=== PATIENT | female | born 1965 | race Two or more races ===

== ENCOUNTER 2023-07-05 21:05 | Emergency (ER) | payer MEDICAID, OTHER ==
[~2023-07-05] VITALS: Ht 162.6 cm; Wt 66.0 kg
[2023-07-06] MEDS ORDERED: methylPREDNISolone SOD SUCC 40 MG/ML VL IM ONE (02:00)
[2023-07-06] MEDS ORDERED: KETOROLAC TROMETH 60MG/2ML VIAL IM ONE (02:00)
[2023-07-06] MEDS ORDERED: HYDR-4902 PO (02:09)
[2023-07-06] MEDS ORDERED: CYCL-837 PO (02:09)
[2023-07-06] MEDS ORDERED: IBUP-1455 PO (02:09)
[2023-07-06 02:44] VITALS: BP 124/75; PULSE 78; RESP 18; TEMP 98.4; O2SAT 97
== END 2023-07-06 03:25 | disposition home or self-care (01) ==
LOC: ER 21:14
DX: S22.088A Other fracture of T11-T12 vertebra, initial encounter for closed fracture (principal); Z88.2 Allergy status to sulfonamides; V29.99XA Rider (driver) (passenger) of other motorcycle injured in unspecified traffic accident, initial encounter; Y93.89 Activity, other specified; Y92.89 Other specified places as the place of occurrence of the external cause; Y99.8 Other external cause status
CPT/HCPCS: 72100; 96372; 99284; J1885; J2920

== ENCOUNTER 2023-07-19 09:01 | Inpatient (IN) | payer MEDICAID ==
[~2023-07-19] VITALS: Ht 167.6 cm; Wt 68.8 kg
[~2023-07-19 09:01] MED LIST: CYCL-837 PO; HYDR-4902 PO; IBUP-1455 PO
[2023-07-19 11:43] LABS: Basophils # (auto) 0 10 ^3/uL (0-0.2); Basophils % (auto) 0.5 % (0.0-2.0); Eosinophils # (auto) 0.1 10 ^3/uL (0-0.8); Eosinophils % (auto) 0.9 % (0.0-7.0); Hematocrit 41.4 % (36.0-46.0); Hemoglobin 14.2 g/dL (12.2-16.2); Lymphocytes # (auto) 1.2 10 ^3/uL (0.4-5.4); Lymphocytes % (auto) 14.4 % (10.0-50.0); Mean Corpuscular Hemoglobin 29.4 pg (28.0-32.0); Mean Corpuscular Hgb Conc. 34.3 g/dL (32.0-36.0); Mean Corpuscular Volume 85.7 fL (80.0-100.0); Monocytes # (auto) 0.4 10 ^3/uL (0-1.3); Monocytes % (auto) 4.9 % (0.0-12.0); Neutrophils # (auto) 6.9 10 ^3/uL (1.6-8.6); Neutrophils % (auto) 79.3 % (37.0-80.0); Red Blood Cells 4.83 10^6/uL (4.0-5.20); Red Cell Distribution Width 12.4 % (11.8-14.3); White Blood Cell 8.7 10^3/uL (4.4-10.8)
[2023-07-19 12:06] LABS: Alanine Aminotransferase 24 U/L (7-40); Albumin 4.7 g/dL (3.2-4.8); Alkaline Phosphatase 162 U/L (46-116); Anion Gap 8 (5-15); Aspartate Aminotransferase 9 U/L (13-40); BUN/Creatinine Ratio 15.5 (10.0-20.0); Blood Urea Nitrogen 11 mg/dL (9-23); Calcium 9.7 mg/dL (8.7-10.4); Carbon Dioxide 27 mmol/L (20-30); Chloride 103 mmol/L (98-107); Glucose 91 mg/dL (74-106); Potassium 4.5 mmol/L (3.5-5.1); Sodium 138 mmol/L (136-145)
[2023-07-19 12:07] LABS: Bilirubin, Total 0.5 mg/dL (0.2-1.0)
[2023-07-19] MEDS ORDERED: NITROGLYCERIN 0.4 MG SL TAB SL PRN (15:00)
[2023-07-19] MEDS ORDERED: HYDROcodone-ACET 5/325MG TAB PO PRN (15:00)
[2023-07-19] MEDS ORDERED: MORPHINE SULFATE INJ 2 MG/ml SYRG IV PRN ×2 (15:00)
[2023-07-19] MEDS ORDERED: ACETAMINOPHEN 325 MG TAB PO PRN (15:00)
[2023-07-19 15:29] LABS: INR 0.98 (0.9-1.15); Partial Thromboplastin Time 29.6 SEC (24.5-34.5); Prothrombin Time 10.3 sec (9.3-11.8)
[2023-07-19 17:20] VITALS: PULSE 74; RESP 20; O2SAT 97
[2023-07-19 20:00] VITALS: PULSE 68; RESP 16; O2SAT 96
[2023-07-19 22:00] VITALS: BP 124/85; PULSE 68; RESP 16; TEMP 98.4; O2SAT 96
[2023-07-20 00:47] LABS: Urine Bacteria NONE SEEN /hpf (None Seen); Urine Blood Negative /uL (Negative); Urine Clarity Clear (Clear); Urine Color Colorless (Yellow); Urine Protein, UAD Negative (Negative); Urine Urobilinogen Normal (Negative); Urine WBC <1 /hpf (0 - 5)
[2023-07-20 05:00] VITALS: BP 107/51; PULSE 68; RESP 16; TEMP 98.3; O2SAT 95
[2023-07-20 06:45] LABS: Anion Gap 9 (5-15); Carbon Dioxide 25 mmol/L (20-30); Chloride 103 mmol/L (98-107); Potassium 4.5 mmol/L (3.5-5.1); Sodium 137 mmol/L (136-145)
[2023-07-20 06:46] LABS: Calcium 9.3 mg/dL (8.7-10.4)
[2023-07-20 06:47] LABS: Basophils # (auto) 0 10 ^3/uL (0-0.2); Basophils % (auto) 0.5 % (0.0-2.0); Eosinophils # (auto) 0.2 10 ^3/uL (0-0.8); Eosinophils % (auto) 2.3 % (0.0-7.0); Hematocrit 39.4 % (36.0-46.0); Hemoglobin 13.4 g/dL (12.2-16.2); Lymphocytes # (auto) 1.2 10 ^3/uL (0.4-5.4); Lymphocytes % (auto) 16.2 % (10.0-50.0); Mean Corpuscular Hemoglobin 29.3 pg (28.0-32.0); Mean Corpuscular Hgb Conc. 34.1 g/dL (32.0-36.0); Monocytes # (auto) 0.4 10 ^3/uL (0-1.3); Monocytes % (auto) 5.3 % (0.0-12.0); Neutrophils # (auto) 5.8 10 ^3/uL (1.6-8.6); Neutrophils % (auto) 75.7 % (37.0-80.0); Red Blood Cells 4.59 10^6/uL (4.0-5.20); Red Cell Distribution Width 12.7 % (11.8-14.3); White Blood Cell 7.7 10^3/uL (4.4-10.8)
[2023-07-20 06:51] LABS: BUN/Creatinine Ratio 21.7 (10.0-20.0); Blood Urea Nitrogen 15 mg/dL (9-23); Glucose 96 mg/dL (74-106)
[2023-07-20 08:00] VITALS: O2SAT 96
[2023-07-20 09:00] VITALS: BP 124/77; PULSE 86; RESP 17; TEMP 98.9; O2SAT 95
[2023-07-20 13:00] VITALS: BP 125/76; PULSE 70; RESP 18; TEMP 99.1; O2SAT 97
== END 2023-07-20 14:40 | disposition left against medical advice (07) | DRG 347 ==
LOC: ER 09:01 → OVERFLOW 14:50 → WEST WING 17:54
PROVIDERS: ADMIT Internal Medicine Pulmonary Disease; ATTEND Internal Medicine Pulmonary Disease
DX: M48.54XA Collapsed vertebra, not elsewhere classified, thoracic region, initial encounter for fracture (principal); M48.04 Spinal stenosis, thoracic region; M51.36 Other intervertebral disc degeneration, lumbar region; Z53.29 Procedure and treatment not carried out because of patient's decision for other reasons; Z88.2 Allergy status to sulfonamides
CPT/HCPCS: 36415; 72131; 72148; 80048; 80053; 81001; 83036; 84443; 85025; 85610; 85730; G0378